=== PATIENT | female | born 1985 | race Caucasian/White ===

== ENCOUNTER 2016-12-10 22:17 | Observation (INO) | payer BC ==
--- NOTE | ~2016-12-10 | CT23 ---
[facility] A Service of [facility] RADIOLOGY TEXT RESULTS PATIENT: MANAN GUZMÁN LOCATION: [facility] 460-01 : 87 UNIT #: [id number] AGE: [address]: Alexandra Linton MD SEX: F ORDER DR: [id number] [facility] [address] [place], [place] [address] [id number] I MR#: [id number] Acc #: [id number] NAME: MANAN GUZMÁN : 1985 SEX: F STUDY DATE/TIME: 12/10/2016 22:37 UNIT: [facility] ROOM: [facility] STUDY DESCRIPTION: CT Angio Neck Attending Physician: Alexandra Linton M.D. Ordering Physician: Alvino Wells D.O. Primary Care Physician: Jonatan Guzmán MEDICAL IMAGING REPORT This report is preliminary unless electronic signature is present EXAM CT angiogram of the neck FINDINGS Please see CT angiogram of the head for results. Dictated by... Eusebio Gabriel M.D. THIS IS AN ELECTRONICALLY VERIFIED REPORT Eusebio Gabriel M.D. at 12/11/2016 1:51 PM JULES/andrez TD: 12/11/2016 09:03 JOB #: [id number] MEDICAL IMAGING REPORT Page 1 of 1 COPY
--- NOTE | ~2016-12-10 | CO ---
Unit #: [id number] #: [id number] Patient: MANAN GUZMÁN [id number] [facility] [address] [place], [place] [address] [id number] MR#: [id number] NAME: MANAN GUZMÁN. ROOM: 460 Age: 31 Sex: F Admission Date: 12/11/2016 : 1985 Attending Physician: Alexandra Linton M.D. Primary Care Physician: Jonatan Guzmán CONSULTATION REPORT PRIMARY CARE PHYSICIAN None. REASON FOR CONSULTATION Headache, right-sided numbness, and confusion. PATIENT IDENTIFICATION This is a 31-year-old, right-handed, white female, who was evaluated in room 460 at [facility]. SOURCE OF INFORMATION The patient and evaluation done by admitting team in detail and my discussion with the ER physician. PROBLEM LIST She has known history of ADHD and some anxiety and she has had wisdom tooth removal. HISTORY OF PRESENT ILLNESS This is a very pleasant 31-year-old, right-handed, white female, who was evaluated in room 460 at [facility] with her mother being present in the room and getting the patient's permission. She presented yesterday at around 8:18 p.m., reporting that around 7:15 p.m., she developed left frontal headaches, and then she noticed that she was having difficulty in comprehending and reading, and she developed problem in saying what she wants to say and then she had some right-sided tingling and may be weak. There was no twitching. There was no loss of consciousness. There was no loss of awareness. She had some blurriness of the vision and numbness on the right side, less of the left. It was not like a hypoventilation type event, it was rather focal. She had mild tachycardia. So, she presented to the emergency room and all of her symptoms but then were resolved. So, the concern is if that was TIA versus a complicated migraine. So, we went for stat CT and CTA. They were unremarkable. I requested MRI of the brain, which was also reported as unremarkable. The patient does not have any headaches anymore. This was not a thunderclap or worst headache of her life, though it is granted that she does not get headaches frequently. There is no change in medication. Unit #: [id number] #: [id number] Patient: MANAN GUZMÁN She has been on control pills since age 16 and there was no change. There is no change in diet though the patient felt a little bit hungry, but she never missed meals. She had some sleep issues and she had some anxiety, but nothing major. Her vital signs were okay. No alcohol like beer or red wine. No increased or decreased caffeinated beverages. No drug history. No head injury. No trauma. No exposure to toxin. No miscarriages. No insect bites or infection or travel. PAST MEDICAL HISTORY As discussed above. PAST SURGICAL HISTORY As discussed above. ALLERGIES None. HOME MEDICATIONS Adderall extended release and contraceptive pills. She is not taking xlqr-eoh-khrzaub pain medications. FAMILY HISTORY Reviewed and negative for neurologic condition, specifically nothing suggesting migraines or stroke in young. SOCIAL HISTORY I believe she is single and has a boyfriend. She has a dog. She claims very rarely alcohol. She is a snack bar cashier/chair finisher, lifelong nonsmoker, and does not use drugs. REVIEW OF SYSTEMS Detailed review of system was attempted. CONSTITUTIONAL: The patient denies any sleep issues, fever, chills, rigor, or sweats. She is not sleeping more, but that is because of her other conditions. No weight issues. HEENT: No more headaches. NECK: No neck pain. CARDIOVASCULAR: No chest pain, clubbing, cyanosis, orthopnea, or palpitation. PULMONARY: No shortness of air, cough, or expectoration. GI: No nausea, vomiting, diarrhea, or constipation. GENITOURINARY: No genitourinary symptoms. EXTREMITIES: No extremity problems. BACK: No back problems. PSYCHIATRIC: No psychiatric issue. NEUROLOGIC: No neurologic issues otherwise. PSYCHIATRIC: She does have ADHD and some anxiety. No other hematologic, dermatologic, endocrine problems known to me. Unit #: [id number] #: [id number] Patient: MANAN GUZMÁN PHYSICAL EXAMINATION VITAL SIGNS: Temperature 98.6, that is the T-max, pulse is 81 to 110, respirations 16 to 18, blood pressure 117/69, O2 saturation is 100%. Weight was 137 pounds, BMI was 25. NEUROLOGICAL: The patient is awake. She is alert. She is oriented. She can name. She can follow commands. No right/left confusion. No finger agnosia. Cranial nerve examination demonstrates full stone of vision to confrontation. Eye movements are conjugate. Funduscopic examination was not done. Pupils are round, reactive to light, and accommodation, size about 3 mm. No ptosis. No nystagmus. Sensation on the face and scalp are normal. Strength of muscles of facial expression normal. Hearing seemed to be intact bilaterally. Tongue was midline. Uvula was midline. Palate elevation was normal. Head turning and shoulder shrugs were unremarkable. Motor examination demonstrated normal bulk, tone. Strength was essentially 5/5. No pronator drift or fine motor movement abnormality was seen. Sensory examination intact for soft touch and pain sensation. No extinction was seen. Romberg was not evaluated. Gait examination was deferred. Reflexes are 1/4. Toes are equivocal. Coordination was normal. DIAGNOSTIC STUDIES Labs and imaging studies results reviewed. IMPRESSION Likely complicated migraine. Nothing suggesting central nervous system infection and nothing is really suggesting subarachnoid hemorrhage type picture. There were no aneurysms identified. She is doing very well. This may be an incidental finding. I told the patient and her mother that one option would be to do a spinal tap, but she is looking so good overall, then observe. If it happens again, then definitely we can consider treatment for migraine and also do an LP. I really doubt this is a classic presentation of TIA either. She already knows a client whose is a neurologist and close by to where she works, so she will see him if needed, keep a headache diary if it happens again to see if there is any change. Also worked for TIA type symptoms and see if there is anything different. However, we will observe right now, and as far as I am concerned, she may be discharged as I am not seeing anything unusual or atypical and call me for any other questions, issues, or concerns. Dictated by... Pablo Chandler/schuyler Unit #: [id number] #: [id number] Patient: MANAN GUZMÁN TD: 12/12/2016 02:10 JOB #: [id number] CONSULTATION REPORT Page 1 of 1 X Donna Arguello MD CONSULTATION REPORT
--- NOTE | ~2016-12-10 | CT17 ---
[facility] A Service [facility] RADIOLOGY TEXT RESULTS PATIENT: MANAN GUZMÁN LOCATION: [facility] 460 : [birth year] UNIT #: [id number] AGE: [address]: Alexandra Linton MD SEX: F ORDER DR: [id number] [facility] [address] [place], [place] [address] [id number] I MR#: [id number] Acc #: [id number] NAME: MANAN GUZMÁN. : 1985 SEX: F STUDY DATE/TIME: 12/10/2016 22:37 UNIT: [facility] ROOM: [facility] STUDY DESCRIPTION: CT Angio Head Attending Physician: Alexandra Linton M.D. Ordering Physician: Alvino Wells D.O. Primary Care Physician: Jonatan Guzmán MEDICAL IMAGING REPORT This report is preliminary unless electronic signature is present EXAM Head and neck CT angiogram with contrast 12/10/2016 PROCEDURE Axial contrast-enhanced head and neck CT angiogram with three-dimensional reformats. COMPARISON Head CT same date. HISTORY Transient episode of dysarthria and confusion 5 hours earlier. TECHNIQUE This CT examination was performed with one or more of the following radiation dose reduction techniques: automatic exposure control, adjustment of mA and/or kV according to patient size, and iterative reconstruction. FINDINGS There is a normal arch branching pattern without proximal great vessel stenosis. The cervical vertebral, common, internal and external carotid arteries are normal. The carotid bifurcations are normal. There is no stenosis by NASCET or other criteria. Intracranially, the [place] is complete. The left posterior cerebral artery has a type origin. There is symmetric intracranial vascularity without aneurysm or flow-limiting stenosis. The cervical soft tissue structures are normal. The dural venous sinuses are normally patent. The skull base, calvarium and other bony structures are normal. The visualized lung apices are normal. IMPRESSION Normal head and neck CT angiogram. [facility] A Service [facility] RADIOLOGY TEXT RESULTS PATIENT: MANAN GUZMÁN LOCATION: [facility] 460 : 87 UNIT #: [id number] AGE: [address]: Alexandra Linton MD SEX: F ORDER DR: Dictated by... Eusebio Gabriel M.D. THIS IS AN ELECTRONICALLY VERIFIED REPORT Eusebio Gabriel M.D. at 12/11/2016 1:51 PM TEV/andrez TD: 12/11/2016 08:54 JOB #: [id number] MEDICAL IMAGING REPORT Page 1 of 1 COPY
--- NOTE | ~2016-12-10 | MR17 ---
[facility] A Service of [facility] RADIOLOGY TEXT RESULTS PATIENT: MANAN GUZMÁN LOCATION: [facility] 460-01 : [birth year] UNIT #: [id number] AGE: [address]: Alexandra Linton MD SEX: F ORDER DR: [id number] [facility] [address]. [place], [place] [address] [id number] I MR#: [id number] Acc #: [id number] NAME: MANAN GUZMÁN : 1985 SEX: F STUDY DATE/TIME: 12/11/2016 6:55 UNIT: [facility] ROOM: [facility] STUDY DESCRIPTION: MR Brain WWo Contrast Attending Physician: Alexandra Linton M.D. Ordering Physician: Tiffanie Hirsch M.D. Primary Care Physician: Shahab Guzmán M.D. MRI CENTER REPORT This report is preliminary unless electronic signature is present. EXAM Brain MRI with AND without contrast HISTORY Speech disturbance with confusion beginning 1 day ago accompanied by right hand and face numbness that has since resolved. Headache. TECHNIQUE Multiplanar imaging of the brain was performed with and without contrast. 11 mL of MultiHance was used. FINDINGS On diffusion weighted images there is no evidence of abnormal restricted diffusion to suggest a recent infarct. The routine brain images show no white matter signal abnormalities. Ventricular size is normal. There is no evidence of mass lesion, hemorrhage or edema. After contrast administration no abnormal enhancement is seen. Extraaxial structures are unremarkable. IMPRESSION Normal. STAT * RESULT Dictated by... Bong Duarte M.D. THIS IS AN ELECTRONICALLY VERIFIED REPORT Bong Duarte M.D. at 12/11/2016 10:44 AM John TD: 12/11/2016 08:13 JOB #: [id number] [facility] A Service of [facility] RADIOLOGY TEXT RESULTS PATIENT: MANAN GUZMÁN LOCATION: [facility] 460-01 : [birth year] UNIT #: [id number] AGE: [address]: Alexandra Linton MD SEX: F ORDER DR: MRI CENTER REPORT Page 1 of 1 COPY
--- NOTE | ~2016-12-10 | HP ---
Unit #: [id number] #: [id number] Patient: MANAN GUZMÁN [id number] [address] [place], [place] [address] [id number] I MR#: [id number] NAME: MANAN GUZMÁN. ROOM: 57079 Age: 31 Sex: F Admission Date: 12/11/2016 : 1985 Attending Physician: Tiffanie Hirsch M.D. Primary Care Physician: Shahab Guzmán M.D. HISTORY AND PHYSICAL CHIEF COMPLAINT Headache and transient neurologic symptoms. HISTORY This pleasant 31-year-old female with history of ADHD, is admitted for a headache. The patient states that she was in her usual state of health until last evening. While driving home she developed left frontal headache. Around 7:15 she had difficulty comprehending what she was reading, and experienced mild expressive aphasia, along with right hand tingling. Her symptoms lasted for about 30 minutes. She also did notice some blurred vision and numbness over the right side of her lips. She presents to this emergency department with stable vital signs, although mildly tachycardic to 110. CT of the head is negative, CTA of the head and neck are negative. Her neurological examination at this time is completely normal, and her symptoms have resolved. The case was discussed with Dr. Arguello who thought likely symptoms were related to a complicated migraine. However, patient has never had similar symptoms in the past, and therefore, the patient is admitted as a 23 hour observation. PAST MEDICAL HISTORY 1. ADHD. 2. Oral surgery. ALLERGIES None. HOME MEDICATIONS Adderall extended release 30 mg daily and oral contraceptive pill. FAMILY HISTORY Negative for neurologic disease. SOCIAL HISTORY The patient lives along with her dog janet. She drinks occasional alcohol. Is a lifelong nonsmoker and does not use illicit drugs. REVIEW OF SYSTEMS Notable for headache, transient neurologic symptoms as described above, ADHD, oral surgery. All other systems were reviewed and are negative. PHYSICAL EXAMINATION GENERAL: Very pleasant 31-year-old female currently in no acute distress. Unit #: [id number] #: [id number] Patient: MANAN GUZMÁN VITAL SIGNS: Temperature 97.4, pulse 110, respirations 18, blood pressure 136/86, O2 saturation 100% on room air. HEENT: Eyes - PERRLA. Extraocular muscles are intact. Pharynx is benign. NECK: Supple without adenopathy, thyromegaly, or carotid bruits. CHEST: Clear. CARDIAC: Normal S1 and S2 without S3, S4 or murmur. ABDOMEN: Bowel sounds are present. No hepatosplenomegaly, tenderness, or masses. EXTREMITIES: Without clubbing, cyanosis or edema. Pedal pulses are present. NEUROLOGIC: Patient is awake, alert, and oriented. Cranial nerves are intact. She has +5/5 strength throughout. Normal rapid alternating movements. Normal ehqfew-pw-xaxv. Negative pronator drift. DIAGNOSTIC STUDIES LABORATORY STUDIES: Hematocrit 44, normal white count, platelet count, and coags. SMA 12 was normal. Negative urine tox screen, normal urinalysis. IMAGING STUDIES: Chest x-ray - no acute disease. Head CT - no acute disease. CTA of the head, wet read, is normal. 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 CARDIOLOGY STUDIES: EKG - normal sinus rhythm, rate 95, normal appearing. ASSESSMENT 1. Left headache with transient neurologic symptoms, which may represent a complicated migraine. 2. ADHD. PLANS 1. Aspirin. 2. One dose of Decadron was given in the ER. 3. The case was discussed with Dr. Arguello who will reassess the patient in the morning to decide if further testing is required. 4. No need for DVT prophylaxis at this time. Dictated by Tiffanie Hirsch M.D. AML/ts TD: 12/11/2016 07:11 JOB #: [id number] Unit #: [id number] #: [id number] Patient: MANAN GUZMÁN HISTORY AND PHYSICAL Page 1 of 1 X Tiffanie Hirsch MD HISTORY AND PHYSICAL
--- NOTE | ~2016-12-10 | EKG ---
PATIENT: MANAN MASTERS UNIT #: [id number] Ventricular Rate: 95 BPM Atrial Rate: 95 BPM P-R Interval: 140 ms QRS Duration: 80 ms Q-T Interval: 328 ms QTC Calculation(Bezet): 412 ms P [place]: 69 degrees Calculated R [place]: 60 degrees Calculated T [place]: 45 degrees Diagnosis Line: Normal sinus rhythm Diagnosis Line: Normal ECG Diagnosis Line: No previous ECGs available Diagnosis Line: Confirmed by ALIREZA RAMAN MD ([id number]) on 12/12/2016 Diagnosis Line: 9:33:24 AM INTERPRETING MD: DANISHA POOL
--- NOTE | ~2016-12-10 | CT71 ---
[facility] A Service of [facility] RADIOLOGY TEXT RESULTS PATIENT: MANAN GUZMÁN LOCATION: [facility] 460- : 87 UNIT #: [id number] AGE: [address]: Alexandra Linton MD SEX: F ORDER DR: [id number] [facility] [address] [place], [place] [address] [id number] I MR#: [id number] Acc #: [id number] NAME: MANAN GUZMÁN. : 1985 SEX: F STUDY DATE/TIME: 12/10/2016 21:06 [facility] [address] STUDY DESCRIPTION: CT Head Wo Contrast Attending Physician: Tiffanie Hirsch M.D. Ordering Physician: Connie Prince M.D. Primary Care Physician: Shahab Guzmán M.D. MEDICAL IMAGING REPORT This report is preliminary unless electronic signature is present EXAM CT brain without contrast media. HISTORY Right-sided face, hand numbness, unable to speak. Confusion at 19:20 today. This has resolved. TECHNIQUE Transaxial imaging of the brain was performed without contrast media. Bone and soft tissue windows are reviewed. FINDINGS Ventricular size and configuration is normal. No intra or extraaxial mass lesions, fluid collections or mass effect are seen. No focal areas of low attenuation or evidence of acute intracranial hemorrhage. Bone windows are reviewed appear unremarkable. CONCLUSION Negative noncontrast CT brain Dictated by... Marco Grande M.D. THIS IS AN ELECTRONICALLY VERIFIED REPORT Marco Grande M.D. at 12/11/2016 10:35 AM To TD: 12/11/2016 06:02 JOB #: [id number] MEDICAL IMAGING REPORT Page 1 of 1 COPY
--- NOTE | ~2016-12-10 | CR63 ---
[facility] A Service of [facility] RADIOLOGY TEXT RESULTS PATIENT: MANNA GUZMÁN LOCATION: [place] [address] : [birth year] UNIT #: [id number] AGE: [address]: Alexandra Linton MD SEX: F ORDER DR: [id number] [facility] [address] [place], [place] [address] [id number] I MR#: [id number] Acc #: [id number] NAME: MANAN GUZMÁN : 1985 SEX: F STUDY DATE/TIME: 12/10/2016 20:53 UNIT: [facility] ROOM: [address] STUDY DESCRIPTION: CR Chest 2 View Attending Physician: Tiffanie Hirsch M.D. Ordering Physician: Connie Prince M.D. Primary Care Physician: Jonatan Guzmán MEDICAL IMAGING REPORT This report is preliminary unless electronic signature is present EXAM 2 views chest 12/10/2016 HISTORY Altered consciousness. Right side numbness. Confused. Happened today. FINDINGS PA and lateral radiographs of the chest are presented. No comparisons. Heart and mediastinum normal in size and contour. Lungs are well inflated and clear. No pleural effusion or pneumothorax. No suspicious nodule. Bony structures unremarkable. Visualized upper abdomen normal. Dictated by... Marco Sampson M.D. THIS IS AN ELECTRONICALLY VERIFIED REPORT Marco Sampson M.D. at 12/12/2016 8:06 PM Roni TD: 12/11/2016 05:54 JOB #: [id number] MEDICAL IMAGING REPORT Page 1 of 1 COPY
[2016-12-10 21:57] LABS: BASOPHIL# 0.1 X10e3 (0-0.3); BASOPHIL% 0.6 % (0-2.5); EOSINOPHIL# 0.1 X10e3 (0-0.7); EOSINOPHIL% 0.7 % (0.0-7.0); HEMOGLOBIN 14.6 gm/dL (12.0-16.0); LYMPHOCYTE# 2.5 X10e3 (1.0-3.5); LYMPHOCYTE% 25.7 % (17.0-45.0); MEAN CELL VOLUME 89.3 FL (83-96); MEAN CORPUSCULAR HEMOGLOBIN 29.7 PG (28-34); MEAN CORPUSCULAR HGB CONC 33.3 g/dL (30-36); MEAN PLATELET VOLUME 10.6 FL (6.5-11.5); MONOCYTE# 0.6 X10e3 (0-1.0); MONOCYTE% 5.8 % (3.0-12.0); NEUTROPHIL# 6.6 X10e3 (1.5-7.1); NEUTROPHIL% 67.2 % (40-75); PLATELET COUNT 197 X10e3 (140-420); RED BLOOD COUNT 4.93 X10e (3.90-5.30); WHITE BLOOD COUNT 9.8 X10e3 (4.0-10.5)
[2016-12-10 22:02] LABS: DIFF IND NO
[2016-12-10 22:13] LABS: PROTHROMBIN TIME (PATIENT) 10.3 SECONDS (9.6-11.5)
[2016-12-10 22:18] LABS: ALBUMIN SERUM 4.5 g/dL (3.5-5.0); ALKALINE PHOSPHATASE 40 U/L (32-92); ALT (SGPT) 24 U/L (10-40); AST (SGOT) 20 U/L (10-42); BILIRUBIN, DIRECT 0.1 mg/dL (0.0-0.2); BILIRUBIN,INDIRECT 0.4 mg/dL (0.0-0.9); BILIRUBIN,TOTAL 0.5 mg/dL (0.2-2.0); BLOOD UREA NITROGEN 13 mg/dL (9-23); BUN/CREATININE RATIO 18.57; CALCIUM SERUM 9.4 mg/dL (8.4-10.2); CARBON DIOXIDE 25 mmol/L (22-31); CHLORIDE 102 mmol/L (100-111); CREATININE SERUM 0.7 mg/dL (0.6-1.4); GLOM FILT RATE Estimated ABOVE60 mL/min (>60); GLUCOSE FASTING 89 mg/dL (70-110); POTASSIUM 3.6 mmol/L (3.5-5.1); PROTEIN TOTAL SERUM 7.8 g/dL (6.0-8.3); SODIUM 138 mmol/L (135-145)
[2016-12-10 22:35] LABS: URINE SOURCE CLEAN CATCH
[2016-12-10 22:45] LABS: URINE APPEARANCE CLEAR; URINE BILIRUBIN NEG (NEG); URINE BLOOD NEG (NEG); URINE COLOR YELLOW; URINE GLUCOSE NEG (NEG); URINE KETONE NEG (NEG); URINE LEUKOCYTE ESTERASE NEG (NEG); URINE NITRATE NEG (NEG); URINE PH 6.5 (5-8); URINE PROTEIN NEG (NEG); URINE SPECIFIC GRAVITY 1.002 (1.003-1.035); URINE UROBILINOGEN 0.2 MG/DL (NEG)
[2016-12-10 22:55] LABS: AMPHETAMINE NEG (NEG); BARBITURATES NEG (NEG); BENZODIAZEPINES NEG (NEG); COCAINE NEG (NEG); MARIJUANA NEG (NEG); OPIATES NEG (NEG); TRICYCLIC ANTIDEPRESSANTS NEG (NEG); U METHADONE NEG (NEG)
[2016-12-10 22:58] LABS: CULTURE INDICATED? NO
[2016-12-11 04:55] LABS: BLOOD UREA NITROGEN 11 mg/dL (9-23); BUN/CREATININE RATIO 12.22; CALCIUM SERUM 9.1 mg/dL (8.4-10.2); CARBON DIOXIDE 20 mmol/L (22-31); CHLORIDE 104 mmol/L (100-111); CREATININE SERUM 0.9 mg/dL (0.6-1.4); GLOM FILT RATE Estimated ABOVE60 mL/min (>60); GLUCOSE FASTING 193 mg/dL (70-110); POTASSIUM 3.9 mmol/L (3.5-5.1); SODIUM 136 mmol/L (135-145)
[2016-12-11] MEDS ORDERED: ATIVAN PO (11:36)
[2016-12-11] MEDS ORDERED: DEXTROAMPHETAMI PO (11:38)
[2016-12-11] MEDS ORDERED: ORAL CONTRACEPTIVE PO (11:39)
== END 2016-12-11 13:35 | disposition home or self-care (01) | DRG 103 ==
LOC: CED 22:17 → CEDOF 12-11 00:30 → C4B 12-11 07:37
PROVIDERS: Emergency Medicine; Internal Medicine
DX: R51 Headache (principal); R47.01 Aphasia; R20.0 Anesthesia of skin; F90.9 Attention-deficit hyperactivity disorder, unspecified type; Z79.3 Long term (current) use of hormonal contraceptives
CPT/HCPCS: 36415; 70450; 70496; 70498; 70553; 71020; 80048; 80076; 80307; 81003; 84703; 85025; 85610; 85730; 93005; 99285; A9577; G0378; J1100; Q9967